=== PATIENT | female | born 1950 | race Caucasian/White ===

== ENCOUNTER → 2023-12-25 16:03 | Outpatient (REF) | payer MEDICARE, OTHER, SELFPAY | LOC: WDC 16:03 | PROVIDERS: ATTENDING PHYSICIAN Physician Assistant | DX: Z12.31 Encounter for screening mammogram for malignant neoplasm of breast (principal); R91.1 Solitary pulmonary nodule | CPT/HCPCS: 71250; 77063; 77067 ==